=== PATIENT | female | born 1955 ===

== ENCOUNTER 2019-04-12 01:34 | Emergency (ER) | payer SELFPAY ==
[2019-04-12] MEDS ORDERED: cloNIDine 0.2 MG TAB PO ONE (01:57)
[2019-04-12 02:21] LABS: Hematocrit 43.5 % (30.3-42.9); Hemoglobin 14.2 gm/dl (10.1-14.3); Mean Corpuscular HGB Conc 33 % (30-34); Mean Corpuscular Volume 83 fl (79-97); Platelet Count 344 K/mm3 (140-440); Red Blood Count 5.23 M/mm3 (3.65-5.03); Red Cell Distribution Width 13.6 % (13.2-15.2)
[2019-04-12 02:41] LABS: BUN/Creatinine Ratio 13; Blood Urea Nitrogen 9 mg/dL (7-17); Hemolysis Index 3
--- NOTE | 2019-04-12 02:45 | Cat Scan Report ---
CT head without contrast INDICATION : Dizziness and difficulty swallow. TECHNIQUE: Axial imaging performed from the skull apex through the skull base without the use of con trast. All CT scans at this location are performed using CT dose reduction for ALARA by means of aut omated exposure control. COMPARISON: None FINDINGS: Parenchyma: No acute intracranial hemorrhage or parenchymal abnormality. Ventricles: Ventricles are normal in size and appear symmetric. Soft tissues: Soft tissues including the orbits appear normal. Bones: No acute osseous abnormality. Sinuses: Postoperative change and mild mucosal thickening involving the right maxillary sinus. Remai rey sinuses and mastoid air cells are clear. IMPRESSION: No acute abnormality. Signer Name: Aron Mehta MD Signed: 04/12/2019 2:41 AM Workstation Name: [id number]
--- NOTE | 2019-04-12 04:37 | Emergency Department Report ---
ED Dizziness HPI - General Chief Complaint: Dizziness Stated Complaint: LIGHT HEAD SORE THROAT Time Seen by Provider: 04/12/19 03:43 Source: patient Mode of arrival: Ambulatory Limitations: No Limitations - History of Present Illness Initial Comments: 64-year-old female with a past medical history of hypertension off meds for several years presents to the hospital with complaints of lightheadedness and headache. Patient states she gargled with salt water and then began to have symptoms of 6 PM. She went to sleep and took a Tylenol and woke up at 11 PM without improvement. Patient complained of global 9/10 headache without aggravating or alleviating factors, mop vision, nausea with 1 episode of vomiting, and having some mild difficulty swallowing. She denies facial droop, slurred speech, focal weakness, numbness, or neck pain. Patient received clonidine 0.2 mg around 2 AM prior to my evaluation with improvement in blood pressure and resolution of symptoms. Patient now feels back to normal. Patient denies chest pain or shortness of breath. 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 - Surgical History Past Surgical History?: Yes Additional Surgical History: right lung - Social History Smoking Status: Never Smoker Substance Use Type: None - Medications Home Medications: Home Medications Medication Instructions Recorded Confirmed Last Taken Type labetaloL [Labetalol 100mg TAB] 100 mg PO BID #60 tablet 04/12/19 Unknown Rx ED Physical Exam - General Limitations: No Limitations - Other Other exam information: General: No limitations, patient is alert in no acute distress Head exam: Atraumatic, normocephalic Eyes exam: Normal appearance my pupils equal react to light, extraocular movements intact, no gross lateral visual field deficit ENT: Moist mucous membrane Neck exam: Normal inspection, full range of motion Respiratory exam: Clear to auscultation bilateral, no wheezes, rales, crackles Cardiovascular: Normal rate and rhythm Abdomen: Soft, nondistended, and nontender, with normal bowel sounds, no rebound, or guarding, Extremity: No deformity, full range of motion Back: Normal Inspection Neurologic: Alert, oriented x3, speech clear, 5/5 upper and lower extremity strength, sensation intact and equal bilaterally, [id number] function intact Psychiatric: Normal mood, affect Skin: No rash ED Course Vital Signs 04/12/19 04/12/19 04/12/19 01:46 02:00 03:27 Temperature 98.9 F Pulse Rate 117 H 112 H 105 H Respiratory 18 16 Rate Blood Pressure 219/121 219/121 138/91 Blood Pressure [Left] O2 Sat by Pulse 98 Oximetry 04/12/19 04/12/19 03:55 03:59 Temperature Pulse Rate 82 Respiratory 13 Rate Blood Pressure Blood Pressure 145/93 [Left] O2 Sat by Pulse 99 Oximetry ED Medical Decision Making - Lab Data Result diagrams: 04/12/19 02:01 04/12/19 02:01 Lab Results 04/12/19 04/12/19 Range/Units 02:01 02:01 WBC 7.5 (4.5-11.0) K/mm3 RBC 5.23 H (3.65-5.03) M/mm3 Hgb 14.2 (10.1-14.3) gm/dl Hct 43.5 H (30.3-42.9) % MCV 83 (79-97) fl MCH 27 L (28-32) pg MCHC 33 (30-34) % RDW 13.6 (13.2-15.2) % Plt Count 344 (140-440) K/mm3 Sodium 139 (137-145) mmol/L Potassium 4.3 (3.6-5.0) mmol/L Chloride 99.1 (98-107) mmol/L Carbon Dioxide 25 (22-30) mmol/L Anion Gap 19 mmol/L BUN 9 (7-17) mg/dL Creatinine 0.7 (0.7-1.2) mg/dL Estimated GFR > 60 ml/min BUN/Creatinine Ratio 13 % Glucose 123 H (65-100) mg/dL Calcium 10.0 (8.4-10.2) mg/dL - Radiology Data Radiology results: report reviewed CT head without contrast INDICATION : Dizziness and difficulty swallow. TECHNIQUE: Axial imaging performed from the skull apex through the skull base without the use of contrast. All CT scans at this location are performed using CT dose reduction for ALARA by means of automated exposure control. COMPARISON: None FINDINGS: Parenchyma: No acute intracranial hemorrhage or parenchymal abnormality. Ventricles: Ventricles are normal in size and appear symmetric. Soft tissues: Soft tissues including the orbits appear normal. Bones: No acute osseous abnormality. Sinuses: Postoperative change and mild mucosal thickening involving the right maxillary sinus. Remaining sinuses and mastoid air cells are clear. IMPRESSION: No acute abnormality. - Medical Decision Making Patient had reduction of blood pressure and improvement in symptoms after receiving CLonidine 0.2 mg. Prescription for Labetolol twice a day. Stress to be importance of follow-up for BP medication adjustment. Encouraged pt to document and record her blood pressure daily to provide the back to her primary care provider and decrease salt intake. Outpatient resources provided. - Differential Diagnosis htn emergency, CVA, intracranial hemorrhage, Critical Care Time: No Critical care attestation.: If time is entered above; I have spent that time in minutes in the direct care of this critically ill patient, excluding procedure time. ED Disposition Clinical Impression: Uncontrolled hypertension, Light-headed feeling, Headache Disposition: DC-01 TO HOME OR SELFCARE Is pt being admited?: No Does the pt Need Aspirin: No Condition: Stable Instructions: Acute Headache (ED), Hypertension (ED) Additional Instructions: Take the medication as prescribed. Follow-up with your doctor or with the doctor/clinic provided. Return if symptoms worsen as indicated by your discharge instructions. Monitor and document your blood pressure as discussed. It is very important to follow-up with your primary care doctor for further adjustment and your blood pressure medications as needed. Prescriptions: labetaloL [Labetalol 100mg TAB] 100 mg PO BID #60 tablet Referrals: BAY SNIDER MD [Staff Physician] - 2-3 Days [facility] [Provider Group] - 2-3 Days Time of Disposition: 04:39
[2019-04-12 05:01] VITALS: BP 145/101
== END 2019-04-12 05:05 | disposition home or self-care (01) ==
LOC: ED 01:34
DX: I10 Essential (primary) hypertension (principal); R42 Dizziness and giddiness; R51 Headache; Z79.899 Other long term (current) drug therapy
CPT/HCPCS: 36415; 70450; 80048; 85027

== ENCOUNTER 2019-04-17 04:42 | Emergency (ER) | payer SELFPAY ==
[2019-04-17] MEDS ORDERED: GLUCAGON (HUMAN RECOMBINANT) 1 MG/ML INJ IV ONE (08:21)
[2019-04-17] MEDS ORDERED: amLODIPine 5 MG TAB PO ONE (08:22)
[2019-04-17] MEDS ORDERED: LORazepam 2 MG/ML VIAL IV ONE (08:22)
[2019-04-17] MEDS ORDERED: hydroCHLOROthiazide 25 MG TAB PO ONE (08:22)
--- NOTE | 2019-04-17 08:25 | Emergency Department Report ---
ED General Adult HPI - General Chief complaint: Sore Throat Stated complaint: THROAT SWOLLEN Time Seen by Provider: 04/17/19 07:15 Source: patient Mode of arrival: Ambulatory Limitations: No Limitations - History of Present Illness Initial comments: The patient presents to the emergency department with a chief complaint of feeling like something is stuck in her throat. Patient states that she was eating boneless this yesterday and feels the sensation of something stuck in her throat. Patient states she is able swallow okay and has no difficulty br eathing. Patient also complains of a blood pressure being elevated and states that she was recently started on labetalol 100 mg twice a day without any improvement in her blood pressure readings. On triage the patient's blood pressure is 204/110 -: Sudden Radiation: non-radiation Severity scale (0 -10): 1 Quality: dull Consistency: constant Improves with: none Worsens with: none Associated Symptoms: denies other symptoms Treatments Prior to Arrival: none - Related Data Previous Rx's Medication Instructions Recorded Last Taken Type labetaloL [Labetalol 100mg TAB] 100 mg PO BID #60 tablet 04/12/19 Unknown Rx Amlodipine Besylate [Norvasc] 10 mg PO QDAY #90 tablet 04/17/19 Unknown Rx hydroCHLOROthiazide [Hctz] 12.5 mg PO QDAY #90 capsule 04/17/19 Unknown Rx Allergies Allergy/AdvReac Type Severity Reaction Status Date / Time No Known Allergies Allergy Verified 04/12/19 01:43 ED Review of Systems ROS: Stated complaint: THROAT SWOLLEN Other details as noted in HPI Comment: All other systems reviewed and negative Constitutional: denies: chills, fever Eyes: denies: eye pain, eye discharge, vision change ENT: denies: ear pain, throat pain Respiratory: denies: cough, shortness of breath, wheezing Cardiovascular: denies: chest pain, palpitations Endocrine: no symptoms reported Gastrointestinal: denies: abdominal pain, nausea, diarrhea Genitourinary: denies: urgency, dysuria, discharge Musculoskeletal: denies: back pain, joint swelling, arthralgia Skin: denies: rash, lesions Neurological: denies: headache, weakness, paresthesias Psychiatric: denies: anxiety, depression Hematological/Lymphatic: denies: easy bleeding, easy bruising ED Past Medical Hx - Past Medical History Previous Medical History?: Yes Hx Hypertension: Yes 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 - Surgical History Past Surgical History?: Yes Additional Surgical History: right lung - Social History Smoking Status: Never Smoker Substance Use Type: None - Medications Home Medications: Home Medications Medication Instructions Recorded Confirmed Last Taken Type labetaloL [Labetalol 100mg TAB] 100 mg PO BID #60 tablet 04/12/19 Unknown Rx Amlodipine Besylate [Norvasc] 10 mg PO QDAY #90 tablet 04/17/19 Unknown Rx hydroCHLOROthiazide [Hctz] 12.5 mg PO QDAY #90 capsule 04/17/19 Unknown Rx ED Physical Exam - General Limitations: No Limitations General appearance: alert, in no apparent distress - Head Head exam: Present: atraumatic, normocephalic - Eye Eye exam: Present: normal appearance, PERRL, EOMI - ENT ENT exam: Present: mucous membranes moist - Neck Neck exam: Present: normal inspection - Respiratory Respiratory exam: Present: normal lung sounds bilaterally. Absent: respiratory distress - Cardiovascular Cardiovascular Exam: Present: regular rate, normal rhythm. Absent: systolic murmur, diastolic murmur, rubs, gallop - GI/Abdominal GI/Abdominal exam: Present: soft, normal bowel sounds. Absent: distended, tenderness - Extremities Exam Extremities exam: Present: normal inspection - Back Exam Back exam: Present: normal inspection - Neurological Exam Neurological exam: Present: alert, oriented X3, CN II-XII intact. Absent: motor sensory deficit - Psychiatric Psychiatric exam: Present: normal affect, normal mood - Skin Skin exam: Present: warm, dry, intact, normal color. Absent: rash ED Course Vital Signs 04/17/19 04/17/19 04/17/19 04:46 08:48 09:34 Temperature 98.6 F Pulse Rate 103 H 80 83 Respiratory 18 12 Rate Blood Pressure 204/110 225/126 Blood Pressure 178/113 [Right] O2 Sat by Pulse 98 98 Oximetry ED Medical Decision Making - Medical Decision Making Symptoms of dysphasia improved after IV glucagon and Ativan Patient given her hydrochlorothiazide and Norvasc for blood pressure which improved Critical care attestation.: If time is entered above; I have spent that time in minutes in the direct care of this critically ill patient, excluding procedure time. ED Disposition Clinical Impression: Dysphagia, Hypertension Disposition: DC- TO HOME OR SELFCARE Is pt being admited?: No Does the pt Need Aspirin: No Condition: Stable Instructions: Hypertension (ED), Foreign Body Ingestion (ED) Additional Instructions: return if worse Please stop taking labetalol as discussed Prescriptions: hydroCHLOROthiazide [Hctz] 12.5 mg PO QDAY #90 capsule Amlodipine Besylate [Norvasc] 10 mg PO QDAY #90 tablet Referrals: PRIMARY CARE,MD [Primary Care Provider] - 3-5 Days [facility] [Provider Group] - 3-5 Days [facility] [Provider Group] - 3-5 Days Time of Disposition: 09:37
[2019-04-17 09:35] VITALS: BP 178/113
== END 2019-04-17 10:02 | disposition home or self-care (01) ==
LOC: ED 04:42
DX: I10 Essential (primary) hypertension (principal); R13.10 Dysphagia, unspecified
CPT/HCPCS: 96374; 96375; 99283; J1610; J2060

== ENCOUNTER 2019-04-24 09:25 | Emergency (ER) | payer SELFPAY ==
[2019-04-24 11:20] LABS: Bilirubin,Urine NEG (Negative); Blood,Urine SM (Negative); Color,Urine Colorless (Yellow); Protein,Urine <15 mg/dL mg/dL (Negative); Urobilinogen,Urine < 2.0 mg/dL (<2.0)
[2019-04-24] MEDS ORDERED: ONDANSETRON 4 MG ODT TAB PO ONE (15:31)
[2019-04-24] MEDS ORDERED: MORPHINE 4 MG/1 ML INJ IV ONE (15:31)
--- NOTE | 2019-04-24 15:43 | Emergency Department Report ---
ED Abdominal Pain HPI - General Chief Complaint: Urogenital-Female Stated Complaint: BACK PAIN, URINE HAS A FOUL ODOR Time Seen by Provider: 04/24/19 15:12 Source: patient Mode of arrival: Ambulatory Limitations: No Limitations - History of Present Illness Initial Comments: 64-year-old -[place] female with history of hypertension presents with c omplaints of dysuria, left flank pain, and lower abdominal pain x yesterday now with vaginal discharge today. Patient also states her urine is foul-smelling. She rates her pain as a 9/10 in severity. She denies any history of kidney stones, hematuria, dyspareunia, or urinary frequency. Patient also denies any fever, nausea/vomiting, melena, hematochezia, or diarrhea. -: Sudden - Related Data Previous Rx's Medication Instructions Recorded Last Taken Type labetaloL [Labetalol 100mg TAB] 100 mg PO BID #60 tablet 04/12/19 Unknown Rx Amlodipine Besylate [Norvasc] 10 mg PO QDAY #90 tablet 04/17/19 Unknown Rx hydroCHLOROthiazide [Hctz] 12.5 mg PO QDAY #90 capsule 04/17/19 Unknown Rx Acetaminophen/Codeine [Tylenol 1 tab PO Q8H PRN #8 tab 04/24/19 Unknown Rx /Codeine # 3 tab] Doxycycline Monohydrate 100 mg PO BID 14 Days #28 capsule 04/24/19 Unknown Rx Ibuprofen [Motrin 600 MG tab] 600 mg PO Q8H PRN #15 tablet 04/24/19 Unknown Rx metroNIDAZOLE [Flagyl TAB] 500 mg PO Q12HR 7 Days #14 tab 04/24/19 Unknown Rx Allergies Allergy/AdvReac Type Severity Reaction Status Date / Time No Known Allergies Allergy Verified 04/12/19 01:43 ED Review of Systems ROS: Stated complaint: BACK PAIN, URINE HAS A FOUL ODOR Other details as noted in HPI Constitutional: denies: chills, fever Respiratory: denies: cough, shortness of breath Cardiovascular: denies: chest pain Gastrointestinal: abdominal pain. denies: nausea, vomiting, diarrhea, constipation, hematemesis, melena, hematochezia Genitourinary: dysuria, discharge. 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 - Surgical History Past Surgical History?: Yes Additional Surgical History: right lung - Social History Smoking Status: Never Smoker Substance Use Type: None - Medications Home Medications: Home Medications Medication Instructions Recorded Confirmed Last Taken Type labetaloL [Labetalol 100mg TAB] 100 mg PO BID #60 tablet 04/12/19 Unknown Rx Amlodipine Besylate [Norvasc] 10 mg PO QDAY #90 tablet 04/17/19 Unknown Rx hydroCHLOROthiazide [Hctz] 12.5 mg PO QDAY #90 capsule 04/17/19 Unknown Rx Acetaminophen/Codeine [Tylenol 1 tab PO Q8H PRN #8 tab 04/24/19 Unknown Rx /Codeine # 3 tab] Doxycycline Monohydrate 100 mg PO BID 14 Days #28 capsule 04/24/19 Unknown Rx Ibuprofen [Motrin 600 MG tab] 600 mg PO Q8H PRN #15 tablet 04/24/19 Unknown Rx metroNIDAZOLE [Flagyl TAB] 500 mg PO Q12HR 7 Days #14 tab 04/24/19 Unknown Rx ED Physical Exam - General Limitations: No Limitations General appearance: alert, in no apparent distress - Head Head exam: Present: atraumatic, normocephalic - Eye Eye exam: Present: normal appearance. Absent: scleral icterus - ENT ENT exam: Present: mucous membranes moist - Neck Neck exam: Present: normal inspection - Respiratory Respiratory exam: Present: normal lung sounds bilaterally. Absent: respiratory distress - Cardiovascular Cardiovascular Exam: Present: regular rate, normal rhythm. Absent: systolic murmur, diastolic murmur, rubs, gallop - GI/Abdominal GI/Abdominal exam: Present: soft, tenderness (suprapubic), guarding, normal bowel sounds. Absent: distended - External exam: Present: normal external exam Speculum exam: Present: erythema (mild to moderate erythema of the cervix noted), vaginal discharge, cervical discharge (greenish with fowel smell). Absent: vaginal bleeding Bi-manual exam: Present: cervical motion tendernes - Extremities Exam Extremities exam: Present: normal inspection - Back Exam Back exam: Present: normal inspection, CVA tenderness (R) (mild), CVA tenderness (L) (mild) - Neurological Exam Neurological exam: Present: alert, oriented X3 - Psychiatric Psychiatric exam: Present: normal affect, normal mood - Skin Skin exam: Present: warm, dry, intact, normal color. Absent: rash ED Course Vital Signs 04/24/19 04/24/19 04/24/19 09:41 16:33 18:19 Temperature 99.1 F Pulse Rate 95 H 79 Respiratory 18 18 Rate Blood Pressure 141/96 139/88 O2 Sat by Pulse 97 99 Oximetry ED Medical Decision Making - Lab Data Result diagrams: 04/24/19 15:41 04/24/19 15:41 Lab Results 04/24/19 04/24/19 04/24/19 Range/Units 10:06 15:41 15:41 WBC 8.6 (4.5-11.0) K/mm3 RBC 4.74 (3.65-5.03) M/mm3 Hgb 13.4 (10.1-14.3) gm/dl Hct 38.3 (30.3-42.9) % MCV 81 (79-97) fl MCH 28 (28-32) pg MCHC 35 H (30-34) % RDW 13.2 (13.2-15.2) % Plt Count 289 (140-440) K/mm3 Lymph % (Auto) 30.8 (13.4-35.0) % [place] % (Auto) 8.6 H (0.0-7.3) % Eos % (Auto) 1.3 (0.0-4.3) % Baso % (Auto) 1.1 (0.0-1.8) % Lymph # 2.7 (1.2-5.4) K/mm3 [place] # 0.7 (0.0-0.8) K/mm3 Eos # 0.1 (0.0-0.4) K/mm3 Baso # 0.1 (0.0-0.1) K/mm3 Seg Neutrophils % 58.2 (40.0-70.0) % Seg Neutrophils # 5.0 (1.8-7.7) K/mm3 Sodium 138 (137-145) mmol/L Potassium 3.1 L (3.6-5.0) mmol/L Chloride 96.1 L (98-107) mmol/L Carbon Dioxide 26 (22-30) mmol/L Anion Gap 19 mmol/L BUN 7 (7-17) mg/dL Creatinine 0.6 L (0.7-1.2) mg/dL Estimated GFR > 60 ml/min BUN/Creatinine Ratio 12 % Glucose 113 H (65-100) mg/dL Calcium 10.2 (8.4-10.2) mg/dL Total Bilirubin 0.50 (0.1-1.2) mg/dL AST 13 (5-40) units/L ALT 7 (7-56) units/L Alkaline Phosphatase 71 (35-129) units/L Total Protein 7.5 (6.3-8.2) g/dL Albumin 4.3 (3.9-5) g/dL Albumin/Globulin Ratio 1.3 % Lipase 26 (13-60) units/L Urine Color Colorless (Yellow) Urine Turbidity Clear (Clear) Urine pH 7.0 (5.0-7.0) Ur Specific [place] 1.002 L (1.003-1.030) Urine Protein <15 mg/dl (Negative) mg/dL Urine Glucose (UA) Neg (Negative) mg/dL Urine Ketones Neg (Negative) mg/dL Urine Blood Sm (Negative) Urine Nitrite Neg (Negative) Urine Bilirubin Neg (Negative) Urine Urobilinogen < 2.0 (<2.0) mg/dL Ur Leukocyte Esterase Mod (Negative) Urine WBC (Auto) 2.0 (0.0-6.0) /HPF Urine RBC (Auto) 1.0 (0.0-6.0) /HPF U Epithel Cells (Auto) 1.0 (0-13.0) /HPF - Medical Decision Making 64-year-old female presents with complaints of dysuria, vaginal discharge, and lower abdominal pain starting yesterday. Vitals are normal. CBC shows normal white count. UA is negative for UTI. CT abdomen is negative for acute findings. Cervical motion tenderness noted on pelvic exam with greenish discharge. Wet prep shows trichomonas, BV, and polymorphonuclear cells. Patient given Rocephin and azithromycin here in ED and will discharge home with Fdoxycycline and Flagyl for treatment for PID and trichomonas/BV. Recommend follow-up with primary care provider or [facility]. Discussed in depth strict return precautions in detail with patient who verbalized understanding. Critical care attestation.: If time is entered above; I have spent that time in minutes in the direct care of this critically ill patient, excluding procedure time. ED Disposition Clinical Impression: PID (acute pelvic inflammatory disease), Trichomonal cervicitis, Bacterial vaginosis Disposition: TO HOME OR SELFCARE Is pt being admited?: No Condition: Stable Instructions: Pelvic Inflammatory Disease (ED), Bacterial Vaginosis (ED), Trichomoniasis (ED) Additional Instructions: It is also recommended that you purchase an [id number] gastrointestinal probiotic to take daily during the course of your antibiotic treatment Prescriptions: Doxycycline Monohydrate 100 mg PO BID 14 Days #28 capsule metroNIDAZOLE [Flagyl TAB] 500 mg PO Q12HR 7 Days #14 tab Ibuprofen [Motrin 600 MG tab] 600 mg PO Q8H PRN #15 tablet PRN Reason: Pain Acetaminophen/Codeine [Tylenol /Codeine # 3 tab] 1 tab PO Q8H PRN #8 tab PRN Reason: Pain , Severe (7-10) Referrals: BAY SNIDER MD [Staff Physician] - 3-5 Days Forms: [facility]
[2019-04-24 15:59] LABS: Basophils # (Auto) 0.1 K/mm3 (0.0-0.1); Basophils % (Auto) 1.1 % (0.0-1.8); Eosinophils # (Auto) 0.1 K/mm3 (0.0-0.4); Eosinophils % (Auto) 1.3 % (0.0-4.3); Hematocrit 38.3 % (30.3-42.9); Hemoglobin 13.4 gm/dl (10.1-14.3); Lymphocytes # (Auto) 2.7 K/mm3 (1.2-5.4); Lymphocytes % (Auto) 30.8 % (13.4-35.0); Mean Corpuscular HGB Conc 35 % (30-34); Mean Corpuscular Volume 81 fl (79-97); Monocytes # (Auto) 0.7 K/mm3 (0.0-0.8); Monocytes % (Auto) 8.6 % (0.0-7.3); Platelet Count 289 K/mm3 (140-440); Red Blood Count 4.74 M/mm3 (3.65-5.03); Red Cell Distribution Width 13.2 % (13.2-15.2)
[2019-04-24 16:22] LABS: Alanine Aminotransferase 7 units/L (7-56); Albumin 4.3 g/dL (3.9-5); BUN/Creatinine Ratio 12; Blood Urea Nitrogen 7 mg/dL (7-17); Calcium 10.2 mg/dL (8.4-10.2); Hemolysis Index 16
--- NOTE | 2019-04-24 16:34 | Cat Scan Report ---
CT ABDOMEN AND PELVIS WITHOUT CONTRAST INDICATION / CLINICAL INFORMATION: LLQ and left flank pain. TECHNIQUE: Axial CT images were obtained through the abdomen and pelvis without IV contrast. All CT scans at [facility] location are performed using CT dose reduction for ALARA by means of automated exposure control. COMPARISON: None available. FINDINGS: LOWER CHEST: No significant abnormality. LIVER: No significant abnormality. GALLBLADDER: No significant abnormality. BILE DUCTS: No significant abnormality. PANCREAS: No significant abnormality. SPLEEN: No significant abnormality. ADRENALS: No significant abnormality. RIGHT KIDNEY and URETER: 2.9 cm simple appearing cyst. Tiny nonobstructing intrarenal stones but no u reteral stone or hydronephrosis. LEFT KIDNEY and URETER: No urinary stones. Renal hilar vascular calcifications. STOMACH and SMALL BOWEL: No significant abnormality. COLON: No significant abnormality. APPENDIX: No significant abnormality. PERITONEUM: No free fluid. No free air. No fluid collection. LYMPH NODES: No significant adenopathy. AORTA and ARTERIES: Moderate atherosclerotic calcification without acute abnormality. IVC and VEINS: No significant abnormality. URINARY BLADDER: No significant abnormality. REPRODUCTIVE ORGANS: No significant abnormality. ADDITIONAL FINDINGS: None. SKELETAL SYSTEM: No significant abnormality. IMPRESSION: 1. Nonobstructing right intrarenal stones. No ureteral stones or hydronephrosis. 2. No inflammatory process or bowel obstruction. Signer Name: Michael Gonzalez MD Signed: 04/24/2019 4:29 PM Workstation Name: [id number]
[2019-04-24] MEDS ORDERED: POTASSIUM CHLORIDE ER 20 MEQ TAB PO ONE (16:37)
[2019-04-24] MEDS ORDERED: LIDOCAINE-MPF (1%) 10 MG/1 ML VIAL 5 ML INFILTRATI ONE (17:22)
[2019-04-24] MEDS ORDERED: AZITHROMYCIN 250 MG TAB PO ONE (17:22)
[2019-04-24 18:24] VITALS: BP 139/88
== END 2019-04-24 18:24 | disposition home or self-care (01) ==
LOC: ED 09:25
DX: N73.0 Acute parametritis and pelvic cellulitis (principal); A59.09 Other urogenital trichomoniasis; N76.0 Acute vaginitis; I10 Essential (primary) hypertension; Z98.890 Other specified postprocedural states; Z79.1 Long term (current) use of non-steroidal anti-inflammatories (NSAID); Z79.899 Other long term (current) drug therapy
CPT/HCPCS: 36415; 74176; 80053; 81001; 83690; 85025; 87210; 96372; 96374; 99284; J0696; J2270; Q0162